=== PATIENT | female | born 1960 | race Caucasian/White ===

== ENCOUNTER 2019-05-13 17:22 | Emergency (ER) | payer MEDICARE, OTHER ==
[~2019-05-13] VITALS: Ht 170.2 cm; Wt 98.6 kg
[2019-05-13] MEDS ORDERED: HYDROcodone/APAP 5 MG/325 MG (LORTAB) TAB PO ONE (17:45)
--- NOTE | 2019-05-13 18:24 | ED Fall/Injury ---
General Chief Complaint: Trauma-Non Activation Stated Complaint: HEAD INJ Nursing Triage Note: Patient states she was walking in her yard when she tripped and landed face first onto a metal weight. Moderate amount of swelling and bruising to right eye, patient states her vision is blurred in her right eye. She denies any loss of consciousness, states she was unable to focus her vision for several minutes after falling. History of Present Illness Date Seen by Provider: May 13, 2019 Time Seen by Provider: 18:08 Initial Comments Pt to ER by POMarcy with C/O tryinhg to break up fight between cats and dogs at her home and a dog tripped her. She faceplanted on a handweight around the right eye with swelling and bruising. No LOC. Happened just prior to arrival. Had difficulty with vision for a minute seeing stars. No N/V, SOA, Cough. No pain anywhere else or limits to ROM of neck. Allergies and Home Medications Allergies Coded Allergies: Sulfa (Sulfonamide Antibiotics) (Verified Allergy, Unknown, 05/13/19) adhesive tape (Verified Allergy, Unknown, 05/13/19) amoxicillin (Verified Allergy, Unknown, 05/13/19) canagliflozin (Verified Allergy, Unknown, 05/13/19) mupirocin (Verified Allergy, Unknown, 05/13/19) Patient Home Medication List Home Medication List Reviewed: Yes Review of Systems Review of Systems Constitutional: No chills, No diaphoresis Eyes: See HPI; Denies Blindness, Denies Blurred Vision Ears, Nose, Mouth, Throat: denies ear pain, denies ear discharge Respiratory: No cough, No short of breath Cardiovascular: No edema, No palpitations Past Xivgktn-Gwdves-Qgltez Hx Patient Social History Alcohol Use: Denies Use Recreational Drug Use: No Smoking Status: Never a Smoker Recent Foreign Travel: No Contact w/Someone Who Travel: No Recent Infectious Disease Expo: No Physical Exam Vital Signs Vital Signs - First Documented 05/13/19 17:25 Temp 36.5 Pulse 71 Resp 16 B/P (MAP) 179/79 (112) Pulse Ox 94 O2 Delivery Room Air Capillary Refill : Less Than 3 Seconds Height, Weight, BMI Height: '" Weight: lbs. oz. kg; 34.00 BMI Method: General Appearance: WD/WN, mild distress HEENT: PERRL/EOMI, normal ENT inspection, TMs normal, pharynx normal, other (Neg for starr's sign, hemotympanum, Traumatic swelling and eccymoses around the right orbit without apparent orbital trauma or loss of EOM.) Neck: non-tender, full range of motion, supple, normal inspection Cardiovascular: normal peripheral pulses, regular rate, rhythm Respiratory: no respiratory distress, no accessory muscle use Neurologic/Psychiatric: jig worker II-XII nml as tested, no motor/sensory deficits, alert, normal mood/affect, oriented x 3, other (PERRLA 4mm bilat) Progress/Results/Core Measures Results/Orders Medications Given in ED Current Medications Medications Dose Ordered Sig/Twan Route Start Time Stop Time Status Last Admin Dose Admin Acetaminophen/ Hydrocodone Bitart 1 tab ONCE ONCE PO 05/13/19 17:45 05/13/19 17:46 DC 05/13/19 18:28 1 TAB Vital Signs/I&O 05/13/19 17:25 Temp 36.5 Pulse 71 Resp 16 B/P (MAP) 179/79 (112) Pulse Ox 94 O2 Delivery Room Air Blood Pressure Mean: 112 POS Progress Progress Note : Time: 18:[address] Head and face unremarkable for Fx. Ice pack and hydrocodone. Sunburst eye test. Diagnostic Imaging Diagonstic Imaging: CT (non contrast) Plain Films/CT/US/NM/MRI: facial bones, head Comments No calvarial or facial fx noted. No retroorbital hematoma. Soft tissue edema assoc with tiss surrounding the right orbit. No intracranial bleed, tumor, midline shift or mass effect. Mild encephalomalacia noted. NAME: ANDREW CORDERO [facility] REC#: [id number] PT STATUS: REG ER : 1960 PHYSICIAN: MERYL ENCARNACION MD ADMIT DATE: 05/13/19/ER FS Draft POSDate of Exam:05/13/19 CT HEAD/MAXILLOFACIAL WO EXAMINATION: CT head and face without contrast. TECHNIQUE: Multiple contiguous axial images were obtained through the face and brain without the use of intravenous contrast. All CT scans use one or more of the following dose optimizing techniques: automated exposure control, MA and/or KvP adjustment based on a patient size and exam type, or iterative reconstruction. HISTORY: Trauma. COMPARISON: None available. FINDINGS: The chan-white matter differentiation is normal. No mass effect or midline shift. The ventricles are normal in size and configuration. Basilar cisterns are patent. There are no intra- or extra-axial fluid collections. There is no intracranial hemorrhage. The orbits are normal. Paranasal sinuses are normal. Mastoid air cells are clear. No soft tissue abnormality is seen. No osseus lesions or fractures are seen. No fracture is seen in the face. The nasal bones are normal. Mandible and maxillae are normal. Zygomatic arches are normal. Pterygoid plates are normal. No soft tissue abnormality is seen. There are multiple dental caries and periapical abscesses. IMPRESSION: 1. No acute intracranial abnormality. 2. No fracture in the face. Dictated on workstation # [id number] Dict: 05/13/191819 Trans: 05/13/191822 [id number] Interpreted by: STACIA GARCIA MD Electronically signed by: Reviewed: Reviewed by Me Departure Impression Primary Impression: Fall Qualified Codes: W19.XXXA - Unspecified fall, initial encounter Additional Impression: Traumatic hematoma of face Qualified Codes: S00.83XA - Contusion of other part of head, initial encounter Disposition: HOME, SELF-CARE Condition: Stable Departure-Patient Inst. Decision time for Depature: 18:37 Referrals: NO,LOCAL PHYSICIAN (PCP) Primary Care Physician Patient Instructions: Black Eye, Concussion, Adult (DC) Add. Discharge Instructions: Ice pack for 20 minutes every 2-4 hours for the first 3 days. Tylenol and ibuprofen for pain. If you have significant breakthrough pain daily from being functional then you should use the hydrocodone one tablet every 6 hours as needed. It will cause drowsiness and constipation. All discharge instructions reviewed with patient and/or family. Voiced understanding. Scripts Hydrocodone Bit/Acetaminophen (Hydrocodone/Acetaminophen 5/325mg Tablet) 1 Tab Tab 1 EACH PO Q4-6HR PRN for PAIN-MODERATE MDD 10 for 3 Days, #8 TAB 0 Refills Prov: ISHMAEL GAGNON 05/13/19 Work/School Note: Work Release Form Date Seen in the Emergency Department: May 13, 2019 Return to Work: May 16, 2019 Restrictions: No Restrictions ISHMAEL GAGNON May 13, 2019 18:23 POS
[2019-05-13] MEDS ORDERED: ACHD5005 PO (18:38)
[2019-05-13 19:05] VITALS: BP 139/67
--- OUTSIDE RECORDS SUMMARY | 2019-06-06 18:22 | XMS REPORT | Continuity of Care Document ---
Author Organization Unknown POS Address Unknown SP Phone Unavailable SP Allergies Active Description Code Type Severity POS Reaction Onset Reported/Identified POS to Patient Clinical Status POS Yes adhesive tape [id number] Teo g Allergy SP Unknown N/A 05/13/2019 SP Yes amoxicillin [id number] Drug Aller gy SP N/A 05/13/2019 SP Yes canagliflozin [id number] Teo g Allergy SP Unknown N/A 05/13/2019 SP Yes mupirocin [id number] Drug Allergy SP N/A 05/13/2019 SP Yes Sulfa (Sulfonamide Antibiotics) [id number] SP Allergy Unknown N/A 9 SP SP Medications There is no data. Problems Date Dx Coded Attending Type Code POS Diagnosed By POS 05/13/2019 ISHMAEL GAGNON MD Ot S00.83XA SP CONTUSION OF OTHER PART OF HEAD, INITIAL SP 05/13/2019 ISHMAEL GAGNON MD Ot W01.198A SP FALL SAME LEV FROM SLIP/TRIP W STRIKE AG SP 05/13/2019 ISHMAEL GAGNON MD Ot Y92.096 SP GARDEN OR YARD OF NON-INSTITUTIONAL RESI SP 05/13/2019 ISHMAEL GAGNON MD Ot Z88. 0 SP STATUS TO PENICILLIN SP 05/13/2019 ISHMAEL GAGNON MD Ot Z88. 1 SP STATUS TO OTHER ANTIBIOTIC AGENT SP 05/13/2019 ISHMAEL GAGNON MD Ot Z88. 2 SP STATUS TO SULFONAMIDES STATUS SP 05/13/2019 ISHMAEL GAGNON MD Ot Z88. 8 SP STATUS TO OTH DRUG/MEDS/BIOL SUB SP Procedures There is no data. Results Test Result Range POS TSH - 04/27/19 10:44 POS TSH 2.33 mIU/L 0.40-4.50 SP VITAMIN D, 25-H - 04/27/19 10:44 POS VITAMIN D,25-OH,TOTAL,IA 24 ng/mL 30-10 0 SP Encounters ACCT No. Visit Date/Time Discharge Status POS Pt. Type Provider Facility Loc./Un it POS Complaint POS [id number] 04/21/2019 16:00:00 04/21/2019 23:59: 59 CLS SP Outpatient [facility] SP [id number] 04/27/2019 10:40:00 Document SPRegistration SP [id number] 05/13/2019 17:23:00 019 19:05:00 SP DIS Emergency [facility], ISHMAEL ATKINS - [facility] FS HEAD INJ SP
== END 2019-05-13 19:05 | disposition home or self-care (01) ==
LOC: ER FS 17:23
DX: S00.83XA Contusion of other part of head, initial encounter (principal); Z88.2 Allergy status to sulfonamides; Z88.8 Allergy status to other drugs, medicaments and biological substances; Z88.0 Allergy status to penicillin; Z88.1 Allergy status to other antibiotic agents; W01.198A Fall on same level from slipping, tripping and stumbling with subsequent striking against other object, initial encounter; Y92.096 Garden or yard of other non-institutional residence as the place of occurrence of the external cause
CPT/HCPCS: 70450; 70486